=== PATIENT | female | born 1995 | race Caucasian/White ===

== ENCOUNTER 2019-10-26 13:42 | Emergency (ER) | payer MEDICAID ==
[~2019-10-26] VITALS: Ht 149.9 cm; Wt 41.3 kg
[2019-10-26 13:59] VITALS: Ht 149.9 cm; Wt 41.3 kg
[2019-10-26 15:34] VITALS: BP 111/60
== END 2019-10-26 15:34 | disposition home or self-care (01) ==
LOC: ED 13:42
DX: B34.9 Viral infection, unspecified (principal); Z20.828 Contact with and (suspected) exposure to other viral communicable diseases
CPT/HCPCS: Q0092